=== PATIENT | female | born 1960 | race Caucasian/White ===

== ENCOUNTER → 2018-12-31 | Outpatient (CLI) | payer BC | LOC: LABWHC1 11:48 | PROVIDERS: ATTEND Psychiatry & Neurology Psychiatry | DX: R07.9 Chest pain, unspecified (principal); Z79.899 Other long term (current) drug therapy | CPT/HCPCS: 93005 ==

== ENCOUNTER → 2020-05-03 | Outpatient (CLI) | payer BC ==
[2020-05-03 14:13] VITALS: BP 144/80; PULSE 96; RESP 16; TEMP 98.3; BMI 48.5
--- NOTE | 2020-05-03 14:49 | P.HPBAR ---
Bariatric H&P - History & Physicial H&P Date: 05/03/20 History & Physicial: Visit/CC: Initial Patient initial contact: Initial weight: 144.866 kg Initial weight in pounds: 319.38 Height: 5 ft 8 in Initial BMI: 48.5 Last weight: Current weight: 144.866 kg Current weight in pounds: 319.38 Current BMI: 48.5 [place] body weight (based on NIH guidelines): 63.503 kg Excess body weight loss: 0.0% The patient is a 60 year-old F who presents for Bariatric Assessment. HPI: She reports lifetime problem with her weight. In her 30s, she lost 100 pounds with [employer] and developed depression with weight gain. She is an emotional eater. She is looking into the sleeve gastrectomy. She reports left knee pain with injury. She walks. Her highest weight 320 pounds. She is under supervised weight loss. She reports heart burn especially with tums. She no longer has her gallbladder. She has family history of morbid obesity in her mother and siblings, at least 5. She has arthritis of both knees. She denies hip pain. No lower back pain. No ankle pain. She is on CPAP and takes seroquel. No blood clots or easy bruising. She has family history of esophageal cancer in her uncles at least 2. No medications for reflux. No diabetes. No thyroid problems. No moderate swelling of the legs. She has chronic diarrhea from her gallbladder surgery. Last colonoscopy never. Needs colonoscopy Needs EGD [facility] reveiwed. Past Medical History Past Medical History: Hyperlipidemia, Hypertension History of Any Multi-Drug Resistant Organisms: None Reported Past Anesthesia/Blood Transfusion Reactions: No Reported Reaction Past Psychological History: Depression Smoking Status: Never smoker Past Alcohol Use History: Occasional Past Drug Use History: None Reported Surgical - Exam Vital Signs Temp Pulse Resp BP 98.3 F 96 16 144/80 05/03/20 14:10 05/03/20 14:10 05/03/20 14:10 05/03/20 14:10 Bariatric Checklist Checklist: Plan: Checklist: EGD: 1. Hiatal hernia: 2. H. Pylori: HgbA1c: Vitamin D: Smoking: Never smoker Primary care physician referral: Dr. Rich Psychiatry clearance: Cardiology clearance: Sleep study: Diet journal: VTE risk score: VTE risk level: Rehab needs at discharge:
== END | disposition home or self-care (01) ==
LOC: BARWHC3 13:30
PROVIDERS: ATTEND Surgery Plastic and Reconstructive Surgery
DX: R63.5 Abnormal weight gain (principal); F32.9 Major depressive disorder, single episode, unspecified; S89.92XA Unspecified injury of left lower leg, initial encounter; R12 Heartburn; K52.9 Noninfective gastroenteritis and colitis, unspecified; M17.0 Bilateral primary osteoarthritis of knee; Z99.89 Dependence on other enabling machines and devices; Z80.0 Family history of malignant neoplasm of digestive organs; Z83.49 Family history of other endocrine, nutritional and metabolic diseases; Z90.49 Acquired absence of other specified parts of digestive tract
CPT/HCPCS: 99201

== ENCOUNTER → 2020-05-10 | Outpatient (CLI) | payer BC ==
[2020-05-10 15:06] LABS: HCT 45.5 % (34.0-46.0); HGB 15.3 gm/dL (11.4-16.0); MCH 31.2 pg (25.0-35.0); MCHC 33.7 g/dL (31.0-37.0); MCV 92.6 fL (80.0-100.0); Mean Platelet Volume 9.3; RBC 4.91 m/uL (3.80-5.40); RDW 13.2 % (11.5-15.5); WBC 4.3 k/uL (3.8-10.6)
[2020-05-10 15:08] LABS: INR 0.9 (<1.2); Partial Thromboplastin Time 23.3 sec (22.0-30.0); Prothrombin Time 9.8 sec (9.0-12.0)
[2020-05-10 15:21] LABS: ALT 35 U/L (4-34); AST 30 U/L (14-36); African American GFR (CKD) >90 (>60 ml/min/1.73 sqM); Albumin 4.1 g/dL (3.5-5.0); Alkaline Phosphatase 74 U/L (38-126); Anion Gap 8 mmol/L; Blood Urea Nitrogen 10 mg/dL (7-17); Calcium 9.6 mg/dL (8.4-10.2); Carbon Dioxide 23 mmol/L (22-30); Chloride 106 mmol/L (98-107); Glucose 94 mg/dL (74-99); Magnesium 1.9 mg/dL (1.6-2.3); Non-African American GFR(CKD) >90 (>60 ml/min/1.73 sqM); Phosphorus 3.3 mg/dL (2.5-4.5); Potassium 4.4 mmol/L (3.5-5.1); Sodium 137 mmol/L (137-145); Total Bilirubin 0.4 mg/dL (0.2-1.3); Total Protein 6.9 g/dL (6.3-8.2)
[2020-05-10 15:46] LABS: Platelet Count 88 k/uL (150-450)
[2020-05-10 16:01] LABS: Cholesterol 193 mg/dL (<200); HDL Cholesterol 50 mg/dL (40-60); LDL Cholesterol,Calculated 114 mg/dL (0-99); Triglycerides 146 mg/dL (<150)
[2020-05-11 04:41] LABS: Hemoglobin A1C 5.2 % (4.0-6.0)
[2020-05-11 11:23] LABS: % Iron Saturation 23.53 (12.00-45.00); Iron 84 ug/dL (50-170); Total Iron Binding Capacity 357 ug/dL (228-460)
[2020-05-11 11:32] LABS: Ferritin 40.1 ng/mL (10.0-291.0)
[2020-05-12 13:18] LABS: Zinc, Serum 79 ug/dL (60-130)
[2020-05-15 08:46] LABS: Vitamin A 47 ug/dL (38-106)
[2020-05-15 11:29] LABS: Vit B1(Thiamine) 62 ug/L (38-122)
[2020-05-16 19:47] LABS: Selenium 84 mcg/L (63-160)
--- NOTE | 2020-05-24 14:33 | P.PN ---
Subjective Progress Note Date: 05/24/20 Labs reviewed. Low plts. Low VitaminD. Start vitamin D. EKg weird. Stress test, cardiology associates. 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 Fix hiatal first. Clean gallbladder. Thorough! Objective - Labs CBC & Chem 7: 05/10/20 14:26 05/10/20 14:26
== END | disposition home or self-care (01) ==
LOC: LABPAT 13:50
PROVIDERS: ATTEND Surgery Plastic and Reconstructive Surgery
DX: E21.1 Secondary hyperparathyroidism, not elsewhere classified (principal); E89.1 Postprocedural hypoinsulinemia; D50.9 Iron deficiency anemia, unspecified; K90.9 Intestinal malabsorption, unspecified; E55.9 Vitamin D deficiency, unspecified; K74.1 Hepatic sclerosis; N19 Unspecified kidney failure; K50.90 Crohn's disease, unspecified, without complications; E66.01 Morbid (severe) obesity due to excess calories
CPT/HCPCS: 36415; 80053; 80061; 82306; 82525; 82607; 82728; 82746; 83036; 83540; 83550; 83735; 83970; 84100; 84134; 84255; 84425; 84443; 84590; 84630; 85027; 85610; 85730; 93005

== ENCOUNTER 2020-05-11 08:09 | Day surgery (SDC) | payer BC ==
[2020-05-08 16:35] VITALS: BMI 48.6
--- NOTE | 2020-05-10 21:30 | P.GSHP ---
History of Present Illness H&P Date: 05/11/20 CHIEF COMPLAINT: GERD HISTORY OF PRESENT ILLNESS: The patient is a 60-year-old female who presents reports gastroesophageal reflux disease. Upper endoscopy was offered for further evaluation and management. PAST MEDICAL HISTORY: Please see list. PAST SURGICAL HISTORY: Please see list. MEDICATIONS: Please see list. ALLERGIES: Please see list. SOCIAL HISTORY: No illicit drug use FAMILY HISTORY: No reports of Crohn disease or ulcerative colitis. REVIEW OF ORGAN SYSTEMS: CONSTITUTIONAL: No reports of fevers or chills. GI: Denies any blood in stools or constipation. PHYSICAL EXAM: VITAL SIGNS: Stable GENERAL: Well-developed and pleasant in no acute distress. HEENT: No scleral icterus. Extraocular movements grossly intact. Moist buccal mucosa. NECK: Supple without lymphadenopathy. CHEST: Unlabored respirations. Equal bilateral excursions. CARDIOVASCULAR: Regular rate and rhythm. Distal 2+ pulses. ABDOMEN: Soft, nondistended. MUSCULOSKELETAL: No clubbing, cyanosis, or edema. ASSESSMENT: 1. Gastroesophageal reflux disease PLAN: 1. 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 History of Any Multi-Drug Resistant Organisms: None Reported Past Surgical History: Cholecystectomy Additional Past Surgical History / Comment(s): WISDOM TEETH EXTRACTIONS Past Anesthesia/Blood Transfusion Reactions: No Reported Reaction Smoking Status: Former smoker - Past Family History Father Family Medical History: Cancer Additional Family Medical History / Comment(s): BLADDER AND SKIN CANCER Medications and Allergies Home Medications Medication Instructions Recorded Confirmed Type Atenolol [Tenormin] 50 mg PO DAILY 03/02/20 05/08/20 History Pravastatin Sodium [Pravachol] 20 mg PO DAILY 03/02/20 05/08/20 History QUEtiapine [SEROquel] 50 mg PO HS 03/02/20 05/08/20 History Venlafaxine HCl ER [Effexor XR] 150 mg PO DAILY 03/02/20 05/08/20 History Allergies Allergy/AdvReac Type Severity Reaction Status Date / Time codeine Allergy Rash/Hives Verified 05/08/20 16:14 atorvastatin [From Lipitor] AdvReac JOINT PAIN Verified 05/08/20 16:14
[~2020-05-11 08:09] MED LIST: LACTATED RINGERS 1,000 ML IV SCH
[2020-05-11 08:48] VITALS: TEMP 97
[2020-05-11] MEDS ORDERED: LIDOCAINE 1% INJ 10MG/ML (20 ML MDV) ONE (09:06)
[2020-05-11] MEDS ORDERED: PROPOFOL 10 MG/ML 20 ML VIAL IV ONE (09:06)
--- NOTE | 2020-05-11 09:09 | P.HPADDEND ---
H&P Addendum H&P Addendum Date: 05/11/20 Patient reports gastroesophageal disease despite taking Tums. We'll proceed with upper endoscopy.
[2020-05-11] MEDS ORDERED: IV FLUID CONTINUATION 800 ML IV ONE (09:23)
--- NOTE | 2020-05-11 09:26 | P.PCN ---
Date of Procedure: 05/11/20 Description of Procedure: PREOPERATIVE DIAGNOSIS: Gastroesophageal reflux disease. Morbid obesity. POSTOPERATIVE DIAGNOSIS: Morbid obesity. Gastritis. Gastroesophageal reflux disease. Diaphragmatic hiatal hernia Erosive esophagitis OPERATION: Esophagogastroduodenoscopy with biopsies along antrum. SURGEON: Maren Arellano MD ANESTHESIA: MAC. INDICATIONS: The patient is a 60-year-old female who presents with a history of reflux disease. Benefits and risks of the procedure were described. Informed consent was obtained. DESCRIPTION: The patient was brought into the endoscopy suite and laid in the left lateral decubitus position. An Olympus gastroscope was passed along the posterior oropharynx down to the distal esophagus where the squamocolumnar junction was encountered at 36 cm from the incisors. The stomach was entered and no bile reflux was found. Additional findings are listed below. Biopsies with cold forceps were obtained of the antrum. The first through third portion of the duodenum was examined and unremarkable. Retroflexion of the scope confirmed Hill grade 4 lower esophageal valve. The squamocolumnar junction demonstrated LA grade C erosive esophagitis. The stomach was desufflated. The patient tolerated the procedure well. FINDINGS: Squamocolumnar junction 36 cm from the incisors. Diaphragmatic hiatus at 40 cm. Hiatal hernia, 4 cm, sliding type Hill grade 4 lower esophageal valve. LA grade C erosive esophagitis. No active duodenitis. Chronic gastritis RECOMMENDATIONS: 1. Upper endoscopy as needed. 2. Start omeprazole 40 mg daily 3. Recommend repair of diaphragmatic hiatal hernia Plan - Discharge Summary Discharge Rx Participant: Yes New Discharge Prescriptions: New Omeprazole [PriLOSEC] 40 mg PO DAILY #14 cap Continue Atenolol [Tenormin] 50 mg PO DAILY Pravastatin Sodium [Pravachol] 20 mg PO DAILY QUEtiapine [SEROquel] 50 mg PO HS Venlafaxine HCl ER [Effexor XR] 150 mg PO DAILY Discharge Medication List Atenolol [Tenormin] 50 mg PO DAILY 03/02/20 [History] Pravastatin Sodium [Pravachol] 20 mg PO DAILY 03/02/20 [History] QUEtiapine [SEROquel] 50 mg PO HS 03/02/20 [History] Venlafaxine HCl ER [Effexor XR] 150 mg PO DAILY 03/02/20 [History] Omeprazole [PriLOSEC] 40 mg PO DAILY #14 cap 05/11/20 [Rx] Follow up Appointment(s)/Ref[place] [facility] [place] [place] [facility] [place] 1 Week Patient Instructions/Handouts: Hiatal Hernia (DC), Gastroesophageal Reflux Disease (DC), Esophagitis (DC) Discharge Disposition: HOME SELF-CARE
[2020-05-11 09:45] VITALS: BP 123/83; PULSE 72; RESP 16
== END 2020-05-11 10:05 | disposition home or self-care (01) ==
LOC: ORWHC2ENDO 08:09
PROVIDERS: ATTEND Surgery Plastic and Reconstructive Surgery
DX: K29.50 Unspecified chronic gastritis without bleeding (principal); K21.0 Gastro-esophageal reflux disease with esophagitis; K22.10 Ulcer of esophagus without bleeding; K44.9 Diaphragmatic hernia without obstruction or gangrene; E66.01 Morbid (severe) obesity due to excess calories; E78.5 Hyperlipidemia, unspecified; I10 Essential (primary) hypertension; F32.9 Major depressive disorder, single episode, unspecified; F43.10 Post-traumatic stress disorder, unspecified; G47.33 Obstructive sleep apnea (adult) (pediatric); Z68.42 Body mass index [BMI] 45.0-49.9, adult; Z88.5 Allergy status to narcotic agent; Z88.8 Allergy status to other drugs, medicaments and biological substances; Z99.89 Dependence on other enabling machines and devices; Z90.49 Acquired absence of other specified parts of digestive tract; Z98.890 Other specified postprocedural states; Z87.891 Personal history of nicotine dependence; Z79.899 Other long term (current) drug therapy; Z80.52 Family history of malignant neoplasm of bladder; Z80.8 Family history of malignant neoplasm of other organs or systems
CPT/HCPCS: 88305; 43239; J2001; J2704

== ENCOUNTER → 2020-05-22 | Outpatient (CLI) | payer BC ==
[2020-05-22 11:50] VITALS: BMI 50.3
== END | disposition home or self-care (01) ==
LOC: BARWHC3 08:50
PROVIDERS: ATTEND Surgery Plastic and Reconstructive Surgery
DX: E66.01 Morbid (severe) obesity due to excess calories (principal); Z71.3 Dietary counseling and surveillance; Z68.43 Body mass index [BMI] 50.0-59.9, adult
CPT/HCPCS: 97804

== ENCOUNTER → 2020-05-24 | Outpatient (CLI) | payer BC ==
[2020-05-24 13:47] VITALS: BP 120/74; PULSE 69; RESP 16; TEMP 98.5; BMI 50.3
== END | disposition home or self-care (01) ==
LOC: BARWHC3 13:23
PROVIDERS: ATTEND Surgery Plastic and Reconstructive Surgery
DX: K44.9 Diaphragmatic hernia without obstruction or gangrene (principal); Z87.891 Personal history of nicotine dependence
CPT/HCPCS: 99211

== ENCOUNTER 2020-06-05 07:30 | Inpatient (IN) | payer BC ==
[2020-05-31 11:15] VITALS: BMI 50.1
--- NOTE | 2020-06-04 21:07 | P.GSHP ---
History of Present Illness H&P Date: 06/05/20 CHIEF COMPLAINT: Paraesophageal hiatal hernia with gastroesophageal reflux disease. HISTORY OF PRESENT ILLNESS: The patient is a 83-year-old female who presents with paraesophageal hiatal hernia. She has completed an upper endoscopy workup. Now she presents for surgical intervention. PAST MEDICAL HISTORY: Please see list. PAST SURGICAL HISTORY: Please see list. MEDICATIONS: Please see list. ALLERGIES: Please see list. SOCIAL HISTORY: No illicit drug use FAMILY HISTORY: No reports of Crohn disease or ulcerative colitis. REVIEW OF ORGAN SYSTEMS: CONSTITUTIONAL: No reports of fevers or chills. GI: Denies any blood in stools or constipation. PHYSICAL EXAM: VITAL SIGNS: Stable GENERAL: Well-developed pleasant and in no acute distress. HEENT: No scleral icterus. Extraocular movements grossly intact. Moist buccal mucosa. NECK: Supple without lymphadenopathy. CHEST: Unlabored respirations. Equal bilateral excursions. CARDIOVASCULAR: Regular rate and rhythm. Distal 2+ pulses. ABDOMEN: Soft, nondistended. No peritoneal signs. MUSCULOSKELETAL: No clubbing, cyanosis, or edema. SKIN: Well-perfused. Good skin turgor. ASSESSMENT: 1. Diaphragmatic paraesophageal hiatal hernia with severe gastroesophageal reflux disease. PLAN: 1. Recommend proceeding with a robotic paraesophageal hiatal hernia with possible mesh. 2. Benefits and risks of surgical intervention was discussed including possibility of open technique. 3. Inpatient hospitalization recommended of 2 nights 4. DVT prophylaxis. 5. Antibiotic prophylaxis. 6. She has also completed a very low caloric high-protein diet to address underlying hepatomegaly. 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 History of Any Multi-Drug Resistant Organisms: None Reported Past Surgical History: Cholecystectomy Additional Past Surgical History / Comment(s): WISDOM TEETH EXTRACTIONS, EGD Past Anesthesia/Blood Transfusion Reactions: Postoperative Nausea & Vomiting (PONV) Smoking Status: Former smoker - Past Family History Father Family Medical History: Cancer Additional Family Medical History / Comment(s): BLADDER AND SKIN CANCER Mother Family Medical History: Cancer Additional Family Medical History / Comment(s): ?possible skin ca on head Medications and Allergies Home Medications Medication Instructions Recorded Confirmed Type Atenolol [Tenormin] 50 mg PO DAILY 03/02/20 05/31/20 History Pravastatin Sodium [Pravachol] 20 mg PO DAILY 03/02/20 05/31/20 History QUEtiapine [SEROquel] 50 mg PO HS 03/02/20 05/31/20 History Venlafaxine HCl ER [Effexor XR] 150 mg PO DAILY 03/02/20 05/31/20 History Omeprazole [PriLOSEC] 40 mg PO DAILY #14 cap 05/11/20 05/31/20 Rx Allergies Allergy/AdvReac Type Severity Reaction Status Date / Time codeine Allergy Rash/Hives Verified 05/31/20 11:09 atorvastatin [From Lipitor] AdvReac JOINT PAIN Verified 05/31/20 11:09
[~2020-06-05 07:30] MED LIST changes: +ACETAMINOPHEN TAB 500 MG TAB PO STA; +CHLORHEXIDINE GLUCONATE 15 ML CUP MUCOUS MEM ONE; +DEXAMETHASONE SOD PHOSPHATE 10 MG/ML 1 ML VIAL IV ONE; +GABAPENTIN 300 MG CAP PO STA; +HEPARIN SODIUM,PORCINE 5,000 UNIT/ML 1 ML VIAL SQ ONE; +HYDROmorphone 0.5 MG/0.5 ML SYRINGE IVP PRN; +ONDANSETRON 4 MG/2 ML VIAL IVP ONE; +PANTOPRAZOLE 40 MG/10 ML VIAL IV STA; +SCOPOLAMINE 1.5MG/72HR PATCH TRANSDERM SCH; +TAMSULOSIN 0.4 MG CAP.ER.24H PO STA; +ceFAZolin 3 GM in SODIUM CHLORIDE 0.9% 100 ML IVPB ONE
[2020-06-05] MEDS ORDERED: LIDOCAINE 1% (10MG/ML) FOR IV START INTRADERMA ONE (08:15)
--- NOTE | 2020-06-05 08:20 | P.HPADDEND ---
H&P Addendum H&P Addendum Date: 06/05/20 Patient presents for symptomatic hiatal hernia. Patient had low platelets. Repeat CBC being obtained. Patient understands that any worsening platelet count would warrant canceling surgery.
[2020-06-05] MEDS ORDERED: ONDANSETRON 4 MG/2 ML VIAL ONE (08:32)
[2020-06-05] MEDS ORDERED: ACETAMINOPHEN TAB 500 MG TAB ONE (08:32)
[2020-06-05 08:38] LABS: Basophils % (A) 1 %; Eosinophils # (A) 0.2 k/uL (0-0.7); Eosinophils % (A) 4 %; HCT 46.7 % (34.0-46.0); HGB 15.5 gm/dL (11.4-16.0); Lymphocytes # (A) 1.1 k/uL (1.0-4.8); Lymphocytes % (A) 25 %; MCH 31.1 pg (25.0-35.0); MCHC 33.3 g/dL (31.0-37.0); MCV 93.4 fL (80.0-100.0); Mean Platelet Volume 8.7; Monocytes # (A) 0.4 k/uL (0-1.0); Monocytes % (A) 9 %; Neutrophils # (A) 2.5 k/uL (1.3-7.7); Neutrophils % (A) 59 %; RDW 13.4 % (11.5-15.5); WBC 4.3 k/uL (3.8-10.6)
[2020-06-05 08:41] LABS: Platelet Count 283 k/uL (150-450)
[2020-06-05] MEDS ORDERED: HEPARIN SODIUM,PORCINE 5,000 UNIT/ML 1 ML VIAL ONE (08:48)
[2020-06-05] MEDS ORDERED: LIDOCAINE 1% INJ 10MG/ML (20 ML MDV) ONE (08:53)
[2020-06-05] MEDS ORDERED: SUCCINYLCHOLINE CHLORIDE 100 MG/5 ML SYR IV ONE (08:53)
[2020-06-05] MEDS ORDERED: fentaNYL (PF) 50 MCG/ML 2 ML AMP ONE (08:53)
[2020-06-05] MEDS ORDERED: GLYCOPYRROLATE 0.2 MG/ML 2 ML VIAL ONE (08:53)
[2020-06-05] MEDS ORDERED: ePHEDrine SULFATE/0.9% NACL/PF 50 MG/5 ML SYRINGE IV ONE (08:53)
[2020-06-05] MEDS ORDERED: ROCURONIUM BROMIDE 10 MG/ML 5 ML VIAL IV ONE (08:53)
[2020-06-05] MEDS ORDERED: NEOSTIGMINE 1 MG/ML 10 ML VIAL ONE (08:53)
[2020-06-05] MEDS ORDERED: PROPOFOL 10 MG/ML 20 ML VIAL IV ONE (08:53)
[2020-06-05] MEDS ORDERED: BUPIVACAINE (PF) 0.25% 30 ML VIAL SQ ONE (10:04)
[2020-06-05 10:42] VITALS: TEMP 97.1
[2020-06-05 10:50] VITALS: RESP 16
--- NOTE | 2020-06-05 11:34 | P.OP ---
Date of Procedure: 06/05/20 Description of Procedure: DESCRIPTION OF PROCEDURE(S): SURGEON: CHARLIE DUARTE MD PREOPERATIVE DIAGNOSES: 1. Gastroesophageal reflux disease, with erosive esophagitis 2. Paraesophageal hiatal hernia, midline, recurrent 3. Morbid obesity due to excess calories, BMI of 50.0. 4. Hypertensive heart disease 5. History of open cholecystectomy 6. Depressive disorder POSTOPERATIVE DIAGNOSES: 1. Gastroesophageal reflux disease, with erosive esophagitis 2. Paraesophageal hiatal hernia, midline, recurrent 3. Morbid obesity due to excess calories, BMI of 50.0. 4. Hypertensive heart disease 5. History of open cholecystectomy 6. Depressive disorder 7. Severe hepatomegaly with fatty liver disease 8. Severe epigastric right upper quadrant peritoneal adhesions OPERATION: 1. Robotic-assisted da Edvin Xi laparoscopic hiatal hernia repair aborted for lysis of adhesions ANESTHESIA: General with local anesthetic. ESTIMATED BLOOD LOSS: 5 mL Pathology: None COMPLICATIONS: None. FINDINGS: 1. Moderate to severe intra-abdominal fat 2. Moderate severe right upper quadrant peritoneal adhesions from previous open cholecystectomy 3. Severe hepatomegaly with fatty liver disease completely Securing hiatus for repair INDICATIONS: The patient is a 60-year-old female who presents with hiatal hernia. Preoperative workup including upper endoscopy demonstrated hiatal hernia with erosive esophagitis. Surgical repair was offered first intermetatarsal hernia. Benefits and risks including bleeding, infection, recurrence, dysphagia, injury to the lung, need for further surgery was described at length. Informed consent was obtained. DESCRIPTION: The patient was brought into the operating room and placed in supine position. Preoperatively she had received heparin subcutaneously for DVT prophylaxis. After general induction, the abdomen was prepped and draped in standard sterile fashion. The patient had previously voided prior to coming to the operating room. I[place]an draping was placed along the abdomen. A timeout protocol was confirmed with the surgical team, for which the patient's name, procedure to be performed including DVT prophylaxis with bilateral SCDs, and preoperative antibiotics were also confirmed. A robotic da Edvin Xi system was prepped and primed. At 15 cm from the xiphoid to just below the umbilicus, proposed port sites were marked with indelible marker along the left axillary line, left mid-clavicular line with each ports were marked 10 cm from each other. A 5 mm 0 degrees laparoscopic trocar entry was performed along the left upper quadrant. The abdomen was insufflated to 15 mmHg pressure was tolerated well. Diagnostic laparoscopy demonstrated severe hepatomegaly including moderate intra-abdominal fat and peritoneal adhesions obscuring the right upper quadrant. Next, one 8 mm robotic port was placed along the right upper abdomen. An 8-mm port was were placed along the left lateral abdominal wall. The camera 8-mm port was maintained along the epigastrium. Another 12 mm port was placed along the left upper abdominal wall after exchanging the 5 mm port. Please note that the ports were placed at least 20 cm away from the target anatomy. Care was taken to check that each robotic arm were safely away from collision with the bed or the patient. The patient was repositioned in reverse Trendelenburg position at 21-degrees after lowering the bed. The robot was docked above the left side of the patient. Using a grasper for arm 3, a grasper for arm 1, including vessel sealer for arm 2, the robotic system was docked and primed as described. Instruments were interchanged by the special event assistant. I had sat at the console. Initial attention was brought to hiatus where the liver had obscured the hiatus. Adhesions along the right upper quadrant were addressed with vessel sealer for further exposure of the hiatus. The dense adhesions of greater omentum to the anterior abdominal wall were taken down using vessel sealer. Despite these maneuvers, the hiatus was completely obscured by her left lobe of liver in cluding moderate intra-abdominal fat. Despite state Trendelenburg position, no clear view of the hiatus was obtained as a result, the hiatal hernia portion of the case was aborted. The robot was undocked from the patient. I re-scrubbed into the case. All instruments and pneumoperitoneum were evacuated from the abdominal cavity. The incisions were cleansed with dilute hydrogen peroxide with saline solution. Incisions were reapproximated using 4-0 Monocryl in an interrupted subcuticular fashion. The 12-mm port site fascial defect was less than 8 mm in size. Exofin was applied to the skin. Local anesthetic was infiltrated in all wounds for postop analgesia. Multiple intra-abdominal films were obtained. At the end of the procedure, needle, sponge, and instrument count was verified correct by the rn surgical. The patient had tolerated the procedure well and was taken to the postanesthesia unit in stable condition. Intraoperative films were reviewed with the patient and family.
[2020-06-05 12:05] VITALS: BP 114/76; PULSE 61
--- NOTE | 2020-06-05 14:30 | P.DS ---
Providers Date of admission: 06/05/20 07:36 Expected date of discharge: 06/05/20 Attending physician: Maren Arellano Primary care physician: Abelardo Rich - Discharge Diagnosis(es) (1) Peritoneal adhesions Status: Acute (2) Hepatomegaly Status: Acute (3) Fatty liver disease, nonalcoholic Status: Acute (4) Hiatal hernia Status: Acute (5) Morbid obesity due to excess calories Status: Acute Hospital Course: The patient is 60-year-old female who presented to undergo hiatal hernia repair. Intraoperative findings demonstrated moderate peritoneal adhesions including severe hepatomegaly with fatty liver disease obstructing the view of her hiatus to safely perform hiatal hernia surgery. As a result, hiatal hernia surgery was aborted for lysis of adhesions. Postoperatively, patient was stable for discharge. Intraoperative findings described. Patient Condition at Discharge: Good Plan - Discharge Summary Discharge Rx Participant: Yes New Discharge Prescriptions: New Ibuprofen [Motrin] 600 mg PO Q8HR PRN #30 tab PRN Reason: Pain Acetaminophen Tab [Tylenol Tab] 1,000 mg PO Q6HR PRN #30 tablet Continue Atenolol [Tenormin] 50 mg PO DAILY Pravastatin Sodium [Pravachol] 20 mg PO DAILY QUEtiapine [SEROquel] 50 mg PO HS Venlafaxine HCl ER [Effexor XR] 150 mg PO DAILY Omeprazole [PriLOSEC] 40 mg PO DAILY #14 cap Discharge Medication List Atenolol [Tenormin] 50 mg PO DAILY 03/02/20 [History] Pravastatin Sodium [Pravachol] 20 mg PO DAILY 03/02/20 [History] QUEtiapine [SEROquel] 50 mg PO HS 03/02/20 [History] Venlafaxine HCl ER [Effexor XR] 150 mg PO DAILY 03/02/20 [History] Omeprazole [PriLOSEC] 40 mg PO DAILY #14 cap 05/11/20 [Rx] Acetaminophen Tab [Tylenol Tab] 1,000 mg PO Q6HR PRN #30 tablet 06/05/20 [Rx] Ibuprofen [Motrin] 600 mg PO Q8HR PRN #30 tab 06/05/20 [Rx] Follow up Appointment(s)/Referral(s[place] [facility] [place] - [place]20 Patient Instructions/Handouts: *Surgery [facility] - (Anesthesia) Discharge Instructions Outpatient Surgery, Lysis of Abdominal Adhesions (DC) Activity/Diet/Wound Care/Special Instructions: No lifting over 10 pounds in 2 weeks until June 19March shower. No bath tub soaks for two weeks until June 19 Diet as tolerated. No driving while on narcotics. Use Tylenol and ibuprofen or Aleve scheduled for the next 24-48 hours for best pain relief. Use ice along incisions for the today to prevent swelling. Discharge Disposition: HOME SELF-CARE
== END 2020-06-05 12:21 | disposition home or self-care (01) | DRG 336 ==
LOC: 2ORMAIN 07:36
PROVIDERS: ADMIT Surgery Plastic and Reconstructive Surgery; ATTEND Surgery Plastic and Reconstructive Surgery
PROC: 8E0W4CZ Robotic Assisted Procedure of Trunk Region, Percutaneous Endoscopic Approach (ICD-10-PCS; principal; 2020-06-05 08:55)
PROC: 0DNU4ZZ Release Omentum, Percutaneous Endoscopic Approach (ICD-10-PCS; principal; 2020-06-05 08:55)
DX: K44.9 Diaphragmatic hernia without obstruction or gangrene (principal); K22.10 Ulcer of esophagus without bleeding; Z68.43 Body mass index [BMI] 50.0-59.9, adult; K21.0 Gastro-esophageal reflux disease with esophagitis; I11.9 Hypertensive heart disease without heart failure; R16.0 Hepatomegaly, not elsewhere classified; K76.0 Fatty (change of) liver, not elsewhere classified; E66.01 Morbid (severe) obesity due to excess calories; K66.0 Peritoneal adhesions (postprocedural) (postinfection); E78.5 Hyperlipidemia, unspecified; G47.30 Sleep apnea, unspecified; F32.9 Major depressive disorder, single episode, unspecified; Z53.8 Procedure and treatment not carried out for other reasons; Z79.899 Other long term (current) drug therapy; Z90.49 Acquired absence of other specified parts of digestive tract; Z87.19 Personal history of other diseases of the digestive system; Z98.890 Other specified postprocedural states; Z87.891 Personal history of nicotine dependence; Z98.818 Other dental procedure status; Z88.5 Allergy status to narcotic agent; Z88.8 Allergy status to other drugs, medicaments and biological substances; Z80.52 Family history of malignant neoplasm of bladder; Z80.8 Family history of malignant neoplasm of other organs or systems
CPT/HCPCS: 85025

== ENCOUNTER → 2020-06-07 | Outpatient (CLI) | payer BC ==
--- NOTE | 2020-06-07 16:02 | P.PN ---
Subjective Progress Note Date: 06/07/20 She is on a diet. Plan for weight loss. Esophogram reviwed. Small hiatal herna. Reasonable for sleeve. July 10 for sleeve with small hiatal hernia. Wait 30 day.
[2020-06-09 10:03] VITALS: BP 134/84; PULSE 72; TEMP 98.6; BMI 50.1
== END | disposition home or self-care (01) ==
LOC: BARWHC3 13:45
PROVIDERS: ATTEND Surgery Plastic and Reconstructive Surgery
DX: E66.01 Morbid (severe) obesity due to excess calories (principal); Z71.3 Dietary counseling and surveillance; Z68.43 Body mass index [BMI] 50.0-59.9, adult; K44.9 Diaphragmatic hernia without obstruction or gangrene
CPT/HCPCS: 99211

== ENCOUNTER → 2020-06-07 | Outpatient (CLI) | payer BC ==
--- NOTE | 2020-06-07 14:07 | FL ---
Barium swallow HISTORY: Dysphagia, hiatal hernia Patient received barium to drink. Evaluation of the thoracic esophagus performed. The swallowing mechanism is normal. There is no obstruction to flow. Small fixed hiatal hernia is pre sent. Surgical clips are present right upper quadrant. No extrinsic or intrinsic esophageal lesions. 9 images obtained. 46 seconds fluoroscopy time. IMPRESSION: Hiatal hernia.
== END | disposition home or self-care (01) ==
LOC: RADUSWWP 12:55
PROVIDERS: ATTEND Surgery Plastic and Reconstructive Surgery
DX: K44.9 Diaphragmatic hernia without obstruction or gangrene (principal)
CPT/HCPCS: 74220

== ENCOUNTER → 2020-07-03 | Outpatient (CLI) | payer BC ==
[2020-07-03 11:59] LABS: Basophils % (A) 1 %; Eosinophils # (A) 0.1 k/uL (0-0.7); Eosinophils % (A) 2 %; HCT 48.6 % (34.0-46.0); HGB 15.8 gm/dL (11.4-16.0); Lymphocytes # (A) 0.8 k/uL (1.0-4.8); Lymphocytes % (A) 17 %; MCH 29.7 pg (25.0-35.0); MCHC 32.5 g/dL (31.0-37.0); MCV 91.7 fL (80.0-100.0); Mean Platelet Volume 8.9; Monocytes # (A) 0.4 k/uL (0-1.0); Monocytes % (A) 9 %; Neutrophils # (A) 3.2 k/uL (1.3-7.7); Neutrophils % (A) 70 %; Platelet Count 251 k/uL (150-450); RDW 13.1 % (11.5-15.5); WBC 4.5 k/uL (3.8-10.6)
[2020-07-03 12:03] LABS: ALT 38 U/L (4-34); AST 32 U/L (14-36); African American GFR (CKD) >90 (>60 ml/min/1.73 sqM); Alkaline Phosphatase 78 U/L (38-126); Anion Gap 9 mmol/L; Blood Urea Nitrogen 13 mg/dL (7-17); Calcium 9.5 mg/dL (8.4-10.2); Carbon Dioxide 26 mmol/L (22-30); Chloride 106 mmol/L (98-107); Glucose 95 mg/dL (74-99); Non-African American GFR(CKD) >90 (>60 ml/min/1.73 sqM); Potassium 4.3 mmol/L (3.5-5.1); Sodium 141 mmol/L (137-145); Total Bilirubin 0.5 mg/dL (0.2-1.3); Total Protein 6.4 g/dL (6.3-8.2)
== END | disposition home or self-care (01) ==
LOC: LABPAT 09:41
PROVIDERS: ATTEND Surgery Plastic and Reconstructive Surgery
DX: Z01.818 Encounter for other preprocedural examination (principal); E66.01 Morbid (severe) obesity due to excess calories; I10 Essential (primary) hypertension; Z79.899 Other long term (current) drug therapy
CPT/HCPCS: 36415; 80053; 85025

== ENCOUNTER 2020-07-10 08:00 | Inpatient (IN) | payer BC ==
[~2020-07-10 08:00] MED LIST changes: -ACETAMINOPHEN TAB 500 MG TAB PO STA; -CHLORHEXIDINE GLUCONATE 15 ML CUP MUCOUS MEM ONE; -GABAPENTIN 300 MG CAP PO STA; -HEPARIN SODIUM,PORCINE 5,000 UNIT/ML 1 ML VIAL SQ ONE; -HYDROmorphone 0.5 MG/0.5 ML SYRINGE IVP PRN; -LACTATED RINGERS 1,000 ML IV SCH; +LIDOCAINE 1% (10MG/ML) FOR IV START INTRADERMA PRN; +MIDAZOLAM 2 MG/2 ML VIAL IV PRN; -ONDANSETRON 4 MG/2 ML VIAL IVP ONE; -PANTOPRAZOLE 40 MG/10 ML VIAL IV STA; -SCOPOLAMINE 1.5MG/72HR PATCH TRANSDERM SCH; -TAMSULOSIN 0.4 MG CAP.ER.24H PO STA; +fentaNYL (PF) 50 MCG/ML 2 ML AMP IV PRN
[2020-07-10] MEDS ORDERED: ENOXAPARIN 40 MG/0.4 ML SYRINGE SQ STA (08:27)
[2020-07-10] MEDS ORDERED: PANTOPRAZOLE 40 MG/10 ML VIAL IV STA (08:27)
[2020-07-10] MEDS ORDERED: CHLORHEXIDINE GLUCONATE 15 ML CUP MUCOUS MEM ONE (08:27)
--- NOTE | 2020-07-10 08:27 | P.GSHP ---
History of Present Illness H&P Date: 07/10/20 DATE OF SERVICE: 07/10/2020 CHIEF COMPLAINT: Morbid obesity HISTORY OF PRESENT ILLNESS: Onelia Meng is a 60-year-old female who comes in for morbid obesity. She reports lifetime problem with her weight. In her 30s, she lost 100 pounds with [employer] and developed depression with weight g ain. She is an emotional eater. She is looking into the sleeve gastrectomy. She reports left knee pain with injury. She walks for exercise. Her highest weight is 320 pounds. She is under supervised weight loss. She reports heart burn especially with tums. She no longer has her gallbladder. She has family history of morbid obesity in her mother and siblings, at least five. She has arthritis of both knees. She denies hip pain. She denies lower back pain. She denies ankle pain. She is on CPAP and takes Seroquel. She denies blood clots or easy bruising. She has family history of esophageal cancer in her uncles at least two. She is not on medications for reflux. She denies diabetes or thyroid problems. She denies moderate swelling of the legs. She has chronic diarrhea from her gallbladder surgery. Now she is looking into permanent options for weight loss. At height of 5 feet 8 inches, her ideal body weight is 163 pounds. Her highest weight is 320 pounds, BMI 48.8. She comes in 319 pounds, BMI 48.6. She is 156 pounds overweight. PAST MEDICAL HISTORY: 1. Morbid obesity due to excess calories 2. Body mass index of 48.8, initial 3. Hypertensive heart disease 4. Hyperlipidemia 5. Depressive disorder PAST SURGICAL HISTORY: 1. Cholecystectomy HOME MEDICATIONS: Home Medications Medication Instructions Recorded Confirmed Atenolol [Tenormin] 50 mg PO DAILY 03/02/20 05/31/20 Pravastatin Sodium [Pravachol] 20 mg PO DAILY 03/02/20 05/31/20 QUEtiapine [SEROquel] 50 mg PO HS 03/02/20 05/31/20 Venlafaxine HCl ER [Effexor XR] 150 mg PO DAILY 03/02/20 05/31/20 Previous Rx's Medication Instructions Recorded Omeprazole [PriLOSEC] 40 mg PO DAILY #14 cap 05/11/20 ALLERGIES: Allergies Allergy/AdvReac Type Severity Reaction Status Date / Time codeine Allergy Rash/Hives Verified 05/31/20 11:09 atorvastatin [From Lipitor] AdvReac JOINT PAIN Verified 05/31/20 11:09 SOCIAL HISTORY: No past tobacco use. FAMILY HISTORY: No family history of ulcerative colitis disease or Crohn's disease. Family history of morbid obesity. No lupus in the family. Reports esophageal cancer in family. REVIEW OF ORGAN SYSTEMS: CONSTITUTIONAL: At height of 5 feet 8 inches, her ideal body weight is 163 pounds. Her highest weight is 320 pounds, BMI 48.8. HEENT: Denies any active troubles with vision or hearing. ENDOCRINE: Denies diabetes. No hypothyroidism. CARDIOVASCULAR: Denies past reports of palpitations or heart attacks or chest pain. RESPIRATORY: Has daytime somnolence. Denies asthma. GASTROINTESTINAL: Denies any bright red blood per rectum. Has diarrhea. No constipation. MUSCULOSKELETAL: Has lower back pain and joint pain. Has osteoarthritis of the knees. Denies history of bilateral lower extremity edema. NEURO: No headaches. No seizure disorders. PSYCH: Has depression. No suicidal ideation. RHEUMATOLOGIC: No lupus. No rheumatoid arthritis. HEMATOLOGIC: Denies any abnormal bleeding or bruising. No personal history of DVTs. SKIN: No rash. No skin cancer. PHYSICAL EXAM: VITAL SIGNS: Height 5 foot 4 inches, weight 319 pounds. BMI 48.6 GENERAL: Well-developed in no acute distress. HEENT: No scleral icterus. Extraocular movements grossly intact. Hears conversational speech. No nasal drainage. NECK: Supple without lymphadenopathy. CHEST: Nonlabored respirations with equal bilateral excursions. CARDIOVASCULAR: Regular rate and regular rhythm. Distal 2+ pulses. ABDOMEN: Obese, soft, nontender, nondistended. MUSCULOSKELETAL: No clubbing, cyanosis. Gross strength 5/5 distal lower extremities. NEURO: No focal or lateralizing signs. Cranial nerves 2 through 12 grossly within normal limits. PSYCH: Appropriate affect. Alert and oriented to person, place and time. SKIN: Good skin turgor. Well perfused. ASSESSMENT: 1. Morbid obesity due to excess calories 2. Body mass index of 48.8, initial 3. Hypertensive heart disease 4. Hyperlipidemia 5. Depressive disorder PLAN: 1. Bariatric options between a sleeve, band and a Jani-en-Y gastric bypass were reviewed in detail. The patient elected for a sleeve gastrectomy. Robotic assisted approach described. 2. The [place] [facility] Data was also reviewed with benefits and risks as described. 3. An 8 page second-generation bariatric consent form was reviewed in detail including potential of bleeding, infection, leaks, adequate weight loss, nutritional deficiencies which the patient demonstrated understanding of the risks. 4. A 2 week high-protein low caloric 800 kcal diet described to address hepatomegaly. 5. Preoperative labs including complete metabolic panel and CBC with type and screen recommended. 6. DVT prophylaxis per [place] [facility]. 7. Antibiotic prophylaxis. 8. Inpatient hospitalization anticipated for more than 2 nights. 9. All questions and concerns were addressed with the patient. 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 History of Any Multi-Drug Resistant Organisms: None Reported Past Surgical History: Cholecystectomy Additional Past Surgical History / Comment(s): Robotic Lysis of Adhesions 06-05-20,WISDOM TEETH EXTRACTIONS, EGD Past Anesthesia/Blood Transfusion Reactions: Postoperative Nausea & Vomiting (PONV) Additional Past Anesthesia/Blood Transfusion Reaction / Comment(s): unknown family hx for family Smoking Status: Former smoker - Past Family History Father Family Medical History: Cancer Additional Family Medical History / Comment(s): BLADDER AND SKIN CANCER Mother Family Medical History: Cancer Additional Family Medical History / Comment(s): ?possible skin ca on head Medications and Allergies Home Medications Medication Instructions Recorded Confirmed Type Pravastatin Sodium [Pravachol] 20 mg PO HS 03/02/20 06/29/20 History QUEtiapine [SEROquel] 50 mg PO HS 03/02/20 06/29/20 History Venlafaxine HCl ER [Effexor XR] 150 mg PO QAM 03/02/20 06/29/20 History atenoloL [Tenormin] 50 mg PO QAM 03/02/20 06/29/20 History Calcium Citrate/Vitamin D3 1 each PO DAILY 06/29/20 06/29/20 History [Citracal + D Maximum Caplet] Cholecalciferol [Vitamin D3 (25 1,000 unit PO DAILY 06/29/20 06/29/20 History Mcg = 1000 Iu)] Multivitamins, Thera [Multivitamin 1 tab PO DAILY 06/29/20 06/29/20 History (formulary)] Allergies Allergy/AdvReac Type Severity Reaction Status Date / Time codeine Allergy Rash/Hives Verified 06/29/20 15:16 atorvastatin [From Lipitor] AdvReac JOINT PAIN Verified 06/29/20 15:16
[2020-07-10] MEDS ORDERED: ACETAMINOPHEN IV (For NPO) 1,000 MG in EMPTY BAG 1 BAG IVPB STA (08:29)
[2020-07-10] MEDS ORDERED: ONDANSETRON 4 MG/2 ML VIAL ONE (09:52)
[2020-07-10 09:54] LABS: Glucose,Whole Blood 100 mg/dL (75-99)
[2020-07-10] MEDS ORDERED: DEXAMETHASONE SOD PHOSPHATE 10 MG/ML 1 ML VIAL IV ONE (10:04)
[2020-07-10] MEDS ORDERED: ONDANSETRON 4 MG/2 ML VIAL IVP ONE (10:04)
[2020-07-10] MEDS: LACTATED RINGERS 1,000 ML IV SCH ×2 (10:04→17:12)
[2020-07-10] MEDS ORDERED: SCOPOLAMINE 1.5MG/72HR PATCH TRANSDERM ONE (10:04)
[2020-07-10] MEDS ORDERED: HYDROmorphone (PF) 1 MG/ML ONE (11:26)
[2020-07-10] MEDS ORDERED: ROCURONIUM BROMIDE 10 MG/ML 5 ML VIAL IV ONE (11:26)
[2020-07-10] MEDS ORDERED: LIDOCAINE 1% INJ 10MG/ML (20 ML MDV) ONE (11:26)
[2020-07-10] MEDS ORDERED: fentaNYL (PF) 50 MCG/ML 2 ML AMP ONE (11:26)
[2020-07-10] MEDS ORDERED: PROPOFOL 10 MG/ML 20 ML VIAL IV ONE (11:26)
[2020-07-10] MEDS ORDERED: SUCCINYLCHOLINE CHLORIDE 100 MG/5 ML SYR IV ONE (11:26)
[2020-07-10] MEDS ORDERED: GLYCOPYRROLATE 0.2 MG/ML 2 ML VIAL ONE (11:26)
[2020-07-10] MEDS ORDERED: MIDAZOLAM 2 MG/2 ML VIAL ONE (11:26)
[2020-07-10] MEDS ORDERED: NEOSTIGMINE 1 MG/ML 10 ML VIAL ONE (11:26)
[2020-07-10] MEDS ORDERED: LIDOCAINE 1%-EPI 1:100,000 20 ML VIAL SQ ONE (12:06)
[2020-07-10] MEDS ORDERED: LACTATED RINGERS 1,000 ML IV ONE (12:57)
--- NOTE | 2020-07-10 13:27 | P.OP ---
Date of Procedure: 07/10/20 Description of Procedure: SURGEON: CHARLIE DUARTE MD PREOPERATIVE DIAGNOSES: 1. Morbid obesity due to excess calories 2. Body mass index of 48.8, initial 3. Hypertensive heart disease 4. Hyperlipidemia 5. Depressive disorder 6. Obstructive sleep apnea 7. Gastroesophageal reflux disease 8. Hepatomegaly with fatty liver disease POSTOPERATIVE DIAGNOSES: 1. Morbid obesity due to excess calories 2. Body mass index of 48.8, initial 3. Hypertensive heart disease 4. Hyperlipidemia 5. Depressive disorder 6. Obstructive sleep apnea 7. Gastroesophageal reflux disease 8. Peritoneal adhesion right upper quadrant, previous open cholecystectomy OPERATION: 1. Robotic assisted daVinci Xi laparoscopic sleeve gastrectomy with 40-Icelandic bougie, multiport. 2. Intraoperative esophagogastroduodenoscopy. ANESTHESIA: Gen. local anesthetic ESTIMATED BLOOD LOSS: 5 mL SPECIMENS REMOVED: Sleeve gastrectomy COMPLICATIONS: None. INDICATIONS:Onelia Meng is a 60-year-old female who comes in for morbid obesity. She is looking into the sleeve gastrectomy. She comes in with medical comorbidities including hypertensive heart disease, hyperlipidemia, sleep apnea. She completed medically supervised weight loss including requirements for the bariatric program. At height of 5 feet 8 inches, her ideal body weight is 163 pounds. Her highest weight is 320 pounds, BMI 48.8. She comes in 300 pounds, BMI 45.7. She is 138 pounds overweight. All surgical options for morbid obesity had been described using the [place] [facility] comorbidity resolution including complication risk score. A second-generation bariatric consent form was described in detail including the possibility of protein malnutrition, leaks, gastric stricture, venous thrombosis, gastroesophageal reflux disease, need for further surgery for which she demonstrated understanding. Benefits and risks of the procedure were described at length. Informed consent was obtained. DESCRIPTION: The patient was brought into the operating room theater. Preoperatively she had received Lovenox subcutaneously for DVT prophylaxis. Additionally she had Peridex oral solution as an oral decontaminant. After general induction, the abdomen was prepped and draped in standard sterile fashion. An Ioban draping was placed along the abdomen. A robotic da Edvin Xi system was prepped and primed. At 12 cm from the xiphoid, proposed port sites were marked with indelible marker along the anterior axillary line bilaterally, mid axillary line bilaterally with each ports were marked 10 to 15 cm from each other. The aquatics assistant department head port was marked along the left lateral abdominal wall. The robotic stapler port was marked for the right midclavicular line. A 5 mm 0 degrees laparoscopic trocar entry was performed along the left upper quadrant. The abdomen was insufflated to 15 mmHg pressure was tolerated well. Diagnostic laparoscopy demonstrated no injury to bowel, viscera, or mesentery. No evidence of large hiatus hernia was identified. Right upper quadrant peritoneal adhesions greater omentum to abdominal wall from previous open cholecystectomy was identified. The liver size is reduced due to her 2 week low-carb high-protein diet. A 8 mm port was placed along the left upper abdominal wall after exchanging the 5 mm port. A separate 8 mm port was placed along the left lateral abdominal wall. Please note that the ports were placed at least 20 cm away from the target anatomy. Care was taken to check each robotic arms were safely away from collision with the bed or the patient. At the epigastrium, a medium sized Beryl liver retractor was placed under direct visualization with the Iron Big Data Platform Architect placed under the right shoulder of the patient. Next, 12-mm robot stapler port was placed along the right upper quadrant. The camera 8-mm port was maintained along the epigastrium. The patient was repositioned in reverse Trendelenburg position at 21-degrees after lowering the bed. The robot was docked along the left side of the patient. Using a grasper for arm 4, a vessel sealer for arm 3, including grasper for arm 1, the robotic system was docked and primed as described. Instruments were interchanged by the aquatics assistant department head for stapler loads. The camera was placed at 30-degrees down. I had sat at the console. The pylorus was identified and 6 cm proximally along the greater curvature of the stomach, the short gastrics were mobilized upwards to the angle of His using a vessel sealer. Hemostasis was excellent during this portion of the procedure. Next, the upper pole of the stomach was adherent to the left mary, which was gently dissected free using atraumatic grasper. An anterior hiatal defect was identified. I went to the head of the bed and placed 40-Icelandic blunt bougie into the stomach. The bougie was readjusted by the nurse rubber tire curer. Robotic stapler green load 60 mm 2 followed by blue 60 mm x 4 loads were used to create the sleeve. Initial firing was across the antrum of the stomach towards the angle of His. The staple line was linear without corkscrewing. The space from the angularis incisura of the sleeve was approximately 4 cm. I then went to the head of the bed to perform the intraoperative esophagogastroduodenoscopy leak test. The bougie was withdrawn. The upper pole of the stomach was bathed using normal saline solution. The scope was withdrawn with careful inspection along the staple line for which no leaks were found along the entire length. Additionally,the sleeve was completely hemostatic without any encroachment along the angularis incisura. Its topology was a soft "J". No stricture was encountered upon placement of the scope. The GI tract was desufflated. The patient tolerated this portion of the procedure well. The scope was completely withdrawn. The robot was undocked. I then rescrubbed into case, whereby the irrigation fluid was aspirated from the abdominal cavity. Tisseel fibrin sealant was placed along the entire staple length. Once dried the Beryl liver retractor was removed. Attention was now brought to removal of the specimen. The distal end of the sleeve gastrectomy specimen was brought out through the 12 mm port at the left upper quadrant. The specimen was gently removed en total. No contamination had occurred during this process. All instruments and pneumoperitoneum including irrigation fluid was removed from the abdominal cavity. The 12 mm port site was closed using 0-Vicryl and Camron Lobato and irrigated with diluted hydrogen peroxide. The final incisions were closed using subcuticular interrupted suture of 4-0 Monocryl. Exofin was applied to the skin once the skin had been cleansed. OptiFoam dressing was placed along the stomach extraction site. The sleeve specimen was measured and checked also for leaks which none were found. At the end of the procedure, needle, sponge, and instrument count was verified correct by the rn surgical pcu. The patient was taken to the postanesthesia care unit in stable condition. She had tolerated the procedure well. Intraoperative films and findings were reviewed with the patient's family. FINDINGS: 1. Negative intraoperative esophagogastrojejunoscopy leak test. 2. No hepatomegaly with anterior hiatus defect. 3. Total of 6 staplers used including 2 - 60 mm green robot lucian and 4 - 60 mm blue robot loads used to create the gastric sleeve. 4. Sleeve gastrectomy, 20 x 3 cm
[2020-07-10] MEDS ORDERED: diphenhydrAMINE 50 MG/ML 1 ML VIAL IVP PRN (13:28)
[2020-07-10] MEDS ORDERED: HYDROmorphone 1 MG/ML 1 ML SYRINGE IVP PRN (13:28)
[2020-07-10] MEDS ORDERED: NALOXONE 0.4 MG/ML 1 ML VIAL IV PRN (13:28)
[2020-07-10] MEDS: KETOROLAC 30 MG/ML 1 ML VIAL IVP SCH ×2 (16:20→23:54)
[2020-07-10] MEDS ORDERED: HYDROmorphone 0.5 MG/0.5 ML SYRINGE IVP ONE (16:20)
[2020-07-10] MEDS: ALBUTEROL NEBULIZED 2.5 MG/3 ML INHALATION SCH ×2 (17:12→19:50)
[2020-07-10] MEDS: ONDANSETRON 4 MG/2 ML VIAL IVP SCH ×2 (17:30→23:55)
[2020-07-10] MEDS: HYOSCYAMINE ORAL DROPS 1.875 MG/15 ML BOTTLE PO SCH ×2 (17:31→23:56)
[2020-07-10] MEDS: SIMETHICONE 40 MG/0.6 ML DROPS 2,000 MG/30 ML BOTTLE PO SCH ×2 (17:31→23:56)
[2020-07-10] MEDS: DEXAMETHASONE SOD PHOSPHATE 4 MG/ML 1 ML VIAL IV SCH ×2 (17:31→23:55)
[2020-07-10] MEDS: ACETAMINOPHEN IV (For NPO) 1,000 MG in EMPTY BAG 1 BAG IVPB SCH ×2 (17:32→23:55)
[2020-07-10] MEDS: 0.9% NACL WITH KCL 20 MEQ/L 1,000 ML IV SCH (17:58)
[2020-07-10] MEDS ORDERED: ceFAZolin 3 GM in SODIUM CHLORIDE 0.9% 100 ML IVPB SCH (19:00)
[2020-07-11] MEDS: 0.9% NACL WITH KCL 20 MEQ/L 1,000 ML IV SCH ×2 (00:13→07:43)
[2020-07-11] MEDS: KETOROLAC 30 MG/ML 1 ML VIAL IVP SCH ×2 (05:18→12:13)
[2020-07-11] MEDS: ONDANSETRON 4 MG/2 ML VIAL IVP SCH (05:18)
[2020-07-11] MEDS: DEXAMETHASONE SOD PHOSPHATE 4 MG/ML 1 ML VIAL IV SCH ×2 (05:18→12:14)
[2020-07-11] MEDS: HYOSCYAMINE ORAL DROPS 1.875 MG/15 ML BOTTLE PO SCH ×2 (05:19→12:15)
[2020-07-11] MEDS: ACETAMINOPHEN IV (For NPO) 1,000 MG in EMPTY BAG 1 BAG IVPB SCH ×2 (05:19→13:08)
[2020-07-11] MEDS: SIMETHICONE 40 MG/0.6 ML DROPS 2,000 MG/30 ML BOTTLE PO SCH ×2 (05:20→12:14)
[2020-07-11] MEDS: ALBUTEROL NEBULIZED 2.5 MG/3 ML INHALATION SCH ×2 (07:33→11:12)
[2020-07-11 07:47] VITALS: RESP 16
[2020-07-11] MEDS ORDERED: ENOXAPARIN 40 MG/0.4 ML SYRINGE SQ SCH (09:00)
[2020-07-11] MEDS ORDERED: PANTOPRAZOLE 40 MG/10 ML VIAL IV SCH (09:00)
[2020-07-11] MEDS ORDERED: atenoloL 50 MG TAB PO SCH (09:00)
--- NOTE | 2020-07-11 09:15 | FL ---
EXAMINATION TYPE: FL UGI DATE OF EXAM: 07/11/2020 COMPARISON: NONE HISTORY: Postop gastric sleeve TECHNIQUE: A single contrast UGI study is performed. 30 cc of Isovue-[id number]. Fluoroscopy time of 0.12 m inutes. 4 images submitted. FINDINGS: Certified Registered Dental Assistant image of the abdomen shows no gross abnormality. The esophagus shows normal motility and emptying into the stomach. No evidence of obstruction or ext ravasation. Surgical change noted. IMPRESSION: No evidence of obstruction or extravasation.
[2020-07-11] MEDS ORDERED: SODIUM CHLORIDE 0.9% 2,000 ML IV ONE (10:03)
[2020-07-11] MEDS ORDERED: VENLAFAXINE HCL ER 150 MG CAP PO SCH (10:30)
[2020-07-11] MEDS: LACTATED RINGERS 1,000 ML IV SCH (10:32)
[2020-07-11 10:39] LABS: African American GFR (CKD) >90 (>60 ml/min/1.73 sqM); Anion Gap 7 mmol/L; Blood Urea Nitrogen 14 mg/dL (7-17); Calcium 8.8 mg/dL (8.4-10.2); Carbon Dioxide 21 mmol/L (22-30); Chloride 110 mmol/L (98-107); Magnesium 1.8 mg/dL (1.6-2.3); Non-African American GFR(CKD) >90 (>60 ml/min/1.73 sqM); Phosphorus 2.6 mg/dL (2.5-4.5); Sodium 138 mmol/L (137-145)
[2020-07-11 10:43] LABS: Potassium 5.3 mmol/L (3.5-5.1)
[2020-07-11 10:56] LABS: Basophils % (A) 0 %; Eosinophils % (A) 0 %; HCT 42.1 % (34.0-46.0); HGB 13.2 gm/dL (11.4-16.0); Hypochromasia Slight; Lymphocytes # (A) 0.6 k/uL (1.0-4.8); Lymphocytes % (A) 5 %; MCH 29.3 pg (25.0-35.0); MCHC 31.4 g/dL (31.0-37.0); MCV 93.4 fL (80.0-100.0); Mean Platelet Volume 11.5; Monocytes # (A) 0.3 k/uL (0-1.0); Monocytes % (A) 3 %; Neutrophils # (A) 10.3 k/uL (1.3-7.7); Neutrophils % (A) 91 %; Platelet Count 251 k/uL (150-450); RBC 4.51 m/uL (3.80-5.40); WBC 11.3 k/uL (3.8-10.6)
[2020-07-11 11:22] VITALS: BMI 45.7
--- NOTE | 2020-07-11 14:17 | P.DS ---
<Estefani Bailon - Last Filed: 07/11/20 14:09> Providers Expected date of discharge: 07/11/20 Hospital Course: Discharge diagnosis 1. Morbid obesity due to excess calories status post Robotic assisted daVinci Xi laparoscopic sleeve gastrectomy with 40-Congolese bougie, multiport. And Intraoperative esophagogastroduodenoscopy. 2. Body mass index of 48.8, initial 3. Hypertensive heart disease 4. Hyperlipidemia 5. Depressive disorder 6. Obstructive sleep apnea 7. Gastroesophageal reflux disease 8. Peritoneal adhesion right upper quadrant, previous open cholecystectomy 9. Reactive leukocytosis 10. Hyperkalemia secondary to IV fluids Hospital course This 60-year-old female with known morbid obesity who is status post Robotic assisted daVinci Xi laparoscopic sleeve gastrectomy with 40-Congolese bougie, multiport and Intraoperative esophagogastroduodenoscopy. She tolerated surgery well. No complications. She has tolerated diet and has been up and ambulating. She is afebrile. WBC 11.3 at discharge. She is stable for discharge home. Patient Condition at Discharge: Good Plan - Discharge Summary Discharge Rx Participant: Yes New Discharge Prescriptions: New bisacodyL [Dulcolax] 5 mg PO DAILY PRN #10 tablet. PRN Reason: Constipation Simethicone 40 mg/0.6 ml Drops [Mylicon Drops] 40 mg PO PCHS PRN #30 ml PRN Reason: Gas Omeprazole [PriLOSEC] 40 mg PO DAILY #30 capsule. Ondansetron Odt [Zofran Odt] 4 mg PO Q8HR PRN #9 tab PRN Reason: Nausea Acetaminophen Oral Susp [Tylenol Oral Susp] 1,000 mg PO Q4-6H PRN #400 ml PRN Reason: Pain Continue atenoloL [Tenormin] 50 mg PO QAM QUEtiapine [SEROquel] 50 mg PO HS Venlafaxine HCl ER [Effexor XR] 150 mg PO QAM Discontinued Pravastatin Sodium [Pravachol] 20 mg PO HS Multivitamins, Thera [Multivitamin (formulary)] 1 tab PO DAILY Cholecalciferol [Vitamin D3 (25 Mcg = 1000 Iu)] 1,000 unit PO DAILY Calcium Citrate/Vitamin D3 [Citracal + D Maximum Caplet] 1 each PO DAILY Discharge Medication List QUEtiapine [SEROquel] 50 mg PO HS 03/02/20 [History] Venlafaxine HCl ER [Effexor XR] 150 mg PO QAM 03/02/20 [History] atenoloL [Tenormin] 50 mg PO QAM 03/02/20 [History] Acetaminophen Oral Susp [Tylenol Oral Susp] 1,000 mg PO Q4-6H PRN #400 ml 07/11/20 [Rx] Omeprazole [PriLOSEC] 40 mg PO DAILY #30 capsule. 07/11/20 [Rx] Ondansetron Odt [Zofran Odt] 4 mg PO Q8HR PRN #9 tab 07/11/20 [Rx] Simethicone 40 mg/0.6 ml Drops [Mylicon Drops] 40 mg PO PCHS PRN #30 ml 07/11/20 [Rx] bisacodyL [Dulcolax] 5 mg PO DAILY PRN #10 tablet. 07/11/20 [Rx] Follow up [facility]ment(s[facility]Ref[facility] [place] [facility] [place] [facility]20 10:00 am Patient Instructions/Handouts: *Surgery [facility] - Scopalamine Patch Instructions, Nutrition after Bariatric Surgery (GEN), Laparoscopic Sleeve Gastrectomy (DC) Activity/Diet/Wound Care/Special Instructions: NO lifting over 4 pounds in 4 weeks, Aug 10. May shower. Dressings to be removed by your doctor in the office. Drink 64 oz of fluid daily. Start protein shakes on . Notify bariatric center for temp over 101.0, increased pain, drainage from incisions. No straws or carbonated beverages. Liquid diet only. Sugar content should be less than 6 g to avoid dumping syndrome. Take MOM for constipation. CRUSH, OPEN, OR CUT TABLETS LARGER THAN A SIZE OF A TIC TAC Discharge Disposition: HOME SELF-CARE <Maren Arellano - Last Filed: 07/11/20 20:31> Providers Date of admission: 07/10/20 08:35 Attending physician: Maren Arellano Primary care physician: Abelardo Rich - Discharge Diagnosis(es) (1) S/P laparoscopic sleeve gastrectomy Status: Acute (2) Hypertensive heart disease Status: Acute (3) Morbid obesity due to excess calories Status: Acute Hospital Course: Patient seen and evaluated with above with additional comments below. HISTORY OF PRESENT ILLNESS: The patient is a 60-year-old female with morbid obesity status post sleeve gastrectomy, 07/10/20. She reports feeling great. Her pain is well controlled. No reports of gastroesophageal reflux disease. She completed her esophagram without complications. ROS: No reports of nausea and vomiting. No fevers or chills. No new chest pain. No productive sputum PHYSICAL EXAM: VITAL SIGNS: Reviewed CONSTITUTIONAL: Well developed and in no acute distress. EYES: Conjuctivae without sclera icterus. Extraocular movements grossly intact. HEAD, EARS, NOSE, THROAT: Moist buccal mucosa. Head is atraumatic, normocephalic. Hears conversational speech. No nasal drainage. NECK: Supple. No thyroidomegaly. RESPIRATORY: Non-labored respirations and equal bilateral excursions. CARDIOVASCULAR: Palpable 2+ radial pulses. Regular rate. Regular rhythm. ABDOMEN: Incisions clean dry and intact. Soft. No peritonitis. MUSCULOSKELETAL: No gross deformity of the lower extremities noted. No clubbing. No cyanosis. SKIN: Good skin turgor. Well perfused. NEUROLOGIC: Cranial nerves II through XII grossly intact. No focal or lateralizing signs. PSYCH: Appropriate affect. Alert and oriented to person, place and time. Vital Signs Temp 98.1 F 07/11/20 14:46 Pulse 55 L 07/11/20 14:46 Resp 16 07/11/20 14:46 BP 102/55 07/11/20 14:46 Pulse Ox 91 L 07/11/20 14:46 Intake & Output 07/11/20 07/11/20 07/12/20 06:59 18:59 06:59 Output Total 400 410 Balance -400 -410 Weight 136.4 kg Output: Urine 400 310 Post Void Residual 100 Other: Voiding Method Toilet # Voids 0 4 Laboratory Last Values WBC 11.3 k/uL (3.8-10.6) H 07/11/20 09:41 RBC 4.51 m/uL (3.80-5.40) 07/11/20 09:41 Hgb 13.2 gm/dL (11.4-16.0) 07/11/20 09:41 Hct 42.1 % (34.0-46.0) 07/11/20 09:41 MCV 93.4 fL (80.0-100.0) 07/11/20 09:41 MCH 29.3 pg (25.0-35.0) 07/11/20 09:41 MCHC 31.4 g/dL (31.0-37.0) 07/11/20 09:41 RDW 13.0 % (11.5-15.5) 07/11/20 09:41 Plt Count 251 k/uL (150-450) 07/11/20 09:41 Neutrophils % 91 % 07/11/20 09:41 Lymphocytes % 5 % 07/11/20 09:41 Monocytes % 3 % 07/11/20 09:41 Eosinophils % 0 % 07/11/20 09:41 Basophils % 0 % 07/11/20 09:41 Neutrophils # 10.3 k/uL (1.3-7.7) H 07/11/20 09:41 Lymphocytes # 0.6 k/uL (1.0-4.8) L 07/11/20 09:41 Monocytes # 0.3 k/uL (0-1.0) 07/11/20 09:41 Eosinophils # 0.0 k/uL (0-0.7) 07/11/20 09:41 Basophils # 0.0 k/uL (0-0.2) 07/11/20 09:41 Hypochromasia Slight 07/11/20 09:41 Sodium 138 mmol/L (137-145) 07/11/20 09:41 Potassium 5.3 mmol/L (3.5-5.1) H 07/11/20 09:41 Chloride 110 mmol/L (98-107) H 07/11/20 09:41 Carbon Dioxide 21 mmol/L (22-30) L 07/11/20 09:41 Anion Gap 7 mmol/L 07/11/20 09:41 BUN 14 mg/dL (7-17) 07/11/20 09:41 Creatinine 0.73 mg/dL (0.52-1.04) 07/11/20 09:41 Est GFR (CKD-EPI)AfAm >90 (>60 ml/min/1.73 sqM) 07/11/20 09:41 Est GFR (CKD-EPI)NonAf >90 (>60 ml/min/1.73 sqM) 07/11/20 09:41 POC Glucose (mg/dL) 100 mg/dL (75-99) H 07/10/20 09:53 POC Glu Sulfide Head Operator Lara Ch 07/10/20 09:53 Calcium 8.8 mg/dL (8.4-10.2) 07/11/20 09:41 Phosphorus 2.6 mg/dL (2.5-4.5) 07/11/20 09:41 Magnesium 1.8 mg/dL (1.6-2.3) 07/11/20 09:41 Blood Type A Positive 07/03/20 11:35 Blood Type Confirm A Positive 07/10/20 09:48 Blood Type Recheck No Previous Record 07/03/20 11:35 Bld Type Recheck Status CABO Indicated 07/03/20 11:35 Antibody Screen NEGATIVE 07/03/20 11:35 Spec Expiration Date 07/12/20 0489 07/03/20 11:35 CLINICAL LABS: Labs reviewed Hgb 13.2 STUDIES: Esophagram without leaks or obstruction. ASSESSMENT: 1. Morbid obesity PLAN: 1. Clinically she is doing well 2. Bariatric diet reviewed. 3. Follow up in the bariatric center in 3 to 4 days.
[2020-07-11 14:47] VITALS: BP 102/55; PULSE 55; TEMP 98.1
[2020-07-12] MEDS ORDERED: bisacodyL 5 MG TABLET.DR PO PRN (08:00)
== END 2020-07-11 15:18 | disposition home or self-care (01) | DRG 621 ==
LOC: 2ORMAIN 08:35 → 4SSUR 16:26
PROVIDERS: ADMIT Surgery Plastic and Reconstructive Surgery; ATTEND Surgery Plastic and Reconstructive Surgery
PROC: 0DJ08ZZ Inspection of Upper Intestinal Tract, Via Natural or Artificial Opening Endoscopic (ICD-10-PCS; principal; 2020-07-10 10:35)
PROC: 0DB64Z3 Excision of Stomach, Percutaneous Endoscopic Approach, Vertical (ICD-10-PCS; principal; 2020-07-10 10:35)
PROC: 8E0W4CZ Robotic Assisted Procedure of Trunk Region, Percutaneous Endoscopic Approach (ICD-10-PCS; principal; 2020-07-10 10:35)
DX: E66.01 Morbid (severe) obesity due to excess calories (principal); R16.0 Hepatomegaly, not elsewhere classified; I11.9 Hypertensive heart disease without heart failure; K76.0 Fatty (change of) liver, not elsewhere classified; Z68.42 Body mass index [BMI] 45.0-49.9, adult; D72.828 Other elevated white blood cell count; E78.5 Hyperlipidemia, unspecified; E87.5 Hyperkalemia; F32.9 Major depressive disorder, single episode, unspecified; G47.33 Obstructive sleep apnea (adult) (pediatric); K21.9 Gastro-esophageal reflux disease without esophagitis; K52.9 Noninfective gastroenteritis and colitis, unspecified; M17.0 Bilateral primary osteoarthritis of knee; T50.995A Adverse effect of other drugs, medicaments and biological substances, initial encounter; Z79.899 Other long term (current) drug therapy; Z87.891 Personal history of nicotine dependence; Z90.49 Acquired absence of other specified parts of digestive tract; Z88.5 Allergy status to narcotic agent; Z88.8 Allergy status to other drugs, medicaments and biological substances; Z99.89 Dependence on other enabling machines and devices; Z80.0 Family history of malignant neoplasm of digestive organs; Z80.8 Family history of malignant neoplasm of other organs or systems; Z80.52 Family history of malignant neoplasm of bladder; Z84.89 Family history of other specified conditions
CPT/HCPCS: 74240; 80051; 82310; 82565; 83735; 84100; 84520; 85025; 86850; 86900; 86901; 88307; 94640; 94760; 94762

== ENCOUNTER → 2020-07-26 | Outpatient (CLI) | payer BC | END | disposition home or self-care (01) | LOC: LABWHC1 14:56 | PROVIDERS: ATTEND Surgery Plastic and Reconstructive Surgery | DX: Z53.9 Procedure and treatment not carried out, unspecified reason (principal) ==

== ENCOUNTER → 2020-10-25 | Outpatient (CLI) | payer BC ==
[2020-10-25 14:31] VITALS: BP 117/76; PULSE 60; RESP 18; TEMP 98.2; BMI 41.5
--- NOTE | 2020-10-25 15:33 | P.PN ---
Subjective Progress Note Date: 10/25/20 DATE OF SERVICE: 10/25/2020 CHIEF COMPLAINT: Status post sleeve gastrectomy HISTORY OF PRESENT ILLNESS: Onelia Meng is a 60-year-old female status post sleeve gastrectomy, 07/10/2020. She is 3 months out. She has lost 60 pounds. She denies gastroesophageal reflux disease. She denies heartburn. No reports of dysphagia. She reports feeling energetic in the past 1 month. She is painting her house. She is cleaning. At height of 5 feet 8 inches, her ideal body weight is 163 pounds. Her highest weight was 330 pounds, BMI 50.3. She comes in 272 pounds from 285 pounds, 2 months ago. She has lost 13 pounds in 2 months. Her BMI is now 41.5. She has lost 58 pounds lifetime. Her percent excess weight loss lifetime is 34 %. She is 109 pounds overweight. PHYSICAL EXAM: VITAL SIGNS: Height 5 foot 8 inches, weight 272 pounds. BMI 41.5 Vital Signs Temp 98.2 F 10/25/20 14:28 Pulse 60 10/25/20 14:28 Resp 18 10/25/20 14:28 BP 117/76 10/25/20 14:28 Pulse Ox GENERAL: Well-developed in no acute distress. HEENT: No scleral icterus. Extraocular movements grossly intact. Hears conversational speech. No nasal drainage. NECK: Supple without lymphadenopathy. CHEST: Nonlabored respirations with equal bilateral excursions. CARDIOVASCULAR: Regular rater and rhythm. Distal 2+ pulses. ABDOMEN: Nontender. Nondistended. MUSCULOSKELETAL: No clubbing, cyanosis. NEURO: No focal or lateralizing signs. Cranial nerves 2 through 12 grossly within normal limits. PSYCH: Appropriate affect. Alert and oriented to person, place and time. SKIN: Good skin turgor. Well perfused. ASSESSMENT: 1. Morbid obesity due to excess calories 2. Body mass index of 48.8 to 41.5 3. Hypertensive heart disease 4. Hyperlipidemia 5. Depressive disorder 6. Hiatal hernia 7. Gastroesophageal reflux disease 8. Vitamin D deficiency 9. Thrombocytopenia 10. Secondary hyperparathyroidism 11. Status post sleeve gastrectomy PLAN: 1. Recommend bariatric labs. Objective - Vital Signs Vital signs: Vital Signs Temp 98.2 F 10/25/20 14:28 Pulse 60 10/25/20 14:28 Resp 18 10/25/20 14:28 BP 117/76 10/25/20 14:28 Pulse Ox Intake & Output 10/24/20 10/25/20 10/25/20 18:59 06:59 18:59 Weight 123.831 kg
== END | disposition home or self-care (01) ==
LOC: BARWHC3 14:08
PROVIDERS: ATTEND Surgery Plastic and Reconstructive Surgery
DX: E66.01 Morbid (severe) obesity due to excess calories (principal); I11.9 Hypertensive heart disease without heart failure; E78.5 Hyperlipidemia, unspecified; F32.9 Major depressive disorder, single episode, unspecified; K21.9 Gastro-esophageal reflux disease without esophagitis; E55.9 Vitamin D deficiency, unspecified; Z98.84 Bariatric surgery status; K44.9 Diaphragmatic hernia without obstruction or gangrene; D69.6 Thrombocytopenia, unspecified; N25.81 Secondary hyperparathyroidism of renal origin; Z68.41 Body mass index [BMI] 40.0-44.9, adult; Z71.3 Dietary counseling and surveillance
CPT/HCPCS: 97803; 99211

== ENCOUNTER → 2020-11-06 | Outpatient (CLI) | payer BC ==
[2020-11-06 10:51] LABS: HCT 46.9 % (34.0-46.0); HGB 15.7 gm/dL (11.4-16.0); MCHC 33.4 g/dL (31.0-37.0); MCV 89.8 fL (80.0-100.0); Mean Platelet Volume 8.6; Platelet Count 245 k/uL (150-450); RBC 5.22 m/uL (3.80-5.40); RDW 14.2 % (11.5-15.5); WBC 4.7 k/uL (3.8-10.6)
[2020-11-06 16:41] LABS: % Iron Saturation 16.43 (12.00-45.00); African American GFR (CKD) 109.1 (60.0-200.0); Albumin 4.1 g/dL (3.80-4.90); Albumin/Globulin Ratio 2.28 (1.60-3.17); Anion Gap 6.5 mmol/L (4.00-12.00); BUN/Creat Ratio 24.29 Ratio (12.00-20.00); Calcium 9.3 mg/dL (8.7-10.3); Carbon Dioxide 28.5 mmol/L (21.6-31.8); Chol/HDL Ratio 4.09; Globulin 1.8 g/dL (1.6-3.3); Magnesium 1.9 mg/dL (1.5-2.4); Non-African American GFR(CKD) 94.2 (60.0-200.0); Phosphorus 3.4 mg/dL (2.4-5.1); Potassium 4.1 mmol/L (3.5-5.5); Total Bilirubin 0.3 mg/dL (0.3-1.2); Total Protein 5.9 g/dL (6.2-8.2)
[2020-11-06 16:48] LABS: Ferritin 24.7 ng/mL (10.0-291.0)
[2020-11-06 16:50] LABS: Folate, Serum 7.2 ng/mL
[2020-11-06 17:17] LABS: Hemoglobin A1C 5.5 % (4.0-6.0)
[2020-11-06 20:29] LABS: INR 0.96 (0.90-1.11); Prothrombin Time 10.4 sec (9.9-11.9)
[2020-11-07 14:00] LABS: Zinc, Serum 166 ug/dL (60-130)
[2020-11-08 08:09] LABS: Vitamin A 47 ug/dL (38-106)
[2020-11-08 08:17] LABS: Vit B1(Thiamine) 90 ug/L (38-122)
== END | disposition home or self-care (01) ==
LOC: LABWHC1 09:04
PROVIDERS: ATTEND Surgery Plastic and Reconstructive Surgery
DX: E89.1 Postprocedural hypoinsulinemia (principal); D50.8 Other iron deficiency anemias; E44.0 Moderate protein-calorie malnutrition; E55.9 Vitamin D deficiency, unspecified; K74.1 Hepatic sclerosis; N19 Unspecified kidney failure; K50.90 Crohn's disease, unspecified, without complications
CPT/HCPCS: 36415; 80053; 80061; 82306; 82525; 82607; 82728; 82746; 83036; 83540; 83550; 83735; 83970; 84100; 84134; 84255; 84425; 84443; 84590; 84630; 85027; 85610; 85730

== ENCOUNTER → 2021-07-18 | Outpatient (CLI) | payer BC ==
--- NOTE | 2021-07-19 11:11 | MM ---
Reason for exam: screening (asymptomatic). Baseline mammogram. History: Patient is postmenopausal and is nulliparous. Physical Findings: Nurse did not find any significant physical abnormalities on exam. MG Screening Mammo w CAD Bilateral CC and MLO view(s) were taken. The breast tissue is heterogeneously dense. This may lower the sensitivity of mammography. There is no discrete abnormality. ASSESSMENT: Negative, BI-RAD 1 RECOMMENDATION: Routine screening mammogram of both breasts in 1 year.
== END | disposition home or self-care (01) ==
LOC: RADMAMWWP 14:22
PROVIDERS: ATTEND Family Medicine
DX: Z12.31 Encounter for screening mammogram for malignant neoplasm of breast (principal); Z78.0 Asymptomatic menopausal state
CPT/HCPCS: 77067

== ENCOUNTER → 2023-06-18 | Outpatient (CLI) | payer BC ==
--- NOTE | 2023-06-19 08:42 | MM ---
Reason for Exam: Screening (asymptomatic). Last mammogram was performed 1 year(s) and 11 month(s) ago. Patient History: Menarche at age 13. Patient has no children. Postmenopausal. Risk Values: Verónica 5 year model risk: 1.7%. NCI Lifetime model risk: 7.4%. Prior Study Comparison: 07/18/2021 Bilateral Screening Mammogram, [facility]. Tissue Density: The breast tissue is heterogeneously dense. This may lower the sensitivity of mammography. Findings: Analyzed By CAD. There is no suspicious group of microcalcifications or new suspicious mass in either breast. Overall Assessment: Negative, BI-RAD 1 Management: Screening Mammogram of both breasts in 1 year. A clinical breast exam by your physician is recommended on an annual basis and results should be correlated with mammographic findings. Note on Verónica scores and lifetime risk: 1. A Verónica score greater than 3% is considered moderate risk. If this is the case, consider specialist referral to assess eligibility for a risk reducing agent. If overall lifetime risk for the development of breast cancer is 20% or higher, the patient may qualify for future screening with alternating mammogram and breast MRI. Electronically signed and approved by: Ander Linton D.O.
== END | disposition home or self-care (01) ==
LOC: RADMAMWWP 13:28
PROVIDERS: ATTEND Family Medicine
DX: Z12.31 Encounter for screening mammogram for malignant neoplasm of breast (principal); Z78.0 Asymptomatic menopausal state
CPT/HCPCS: 77067